=== PATIENT | male | born 1990 ===

== ENCOUNTER 2019-05-27 18:09 | Emergency (ER) | payer OTHER, MEDICAID, SELFPAY ==
[2019-05-27 18:10] VITALS: BP 135/80; PULSE 114; RESP 20; TEMP 36.7; O2SAT 96
--- NOTE | 2019-05-27 18:19 | DI.RAD.S_ITS ---
PROCEDURE: XR CHEST 2V INDICATIONS: sob, asthma TECHNIQUE: 2 views of the chest were acquired. COMPARISON: [facility], CR, XR CHEST 2VW, 03/31/2017, 16:56. FINDINGS: Surgical changes and devices: None. Lungs and pleura: There is a questionable pulmonary nodule at the right lung base. The lungs are otherwise clear. No pleural effusion or pneumothorax. Mediastinum: Mediastinal contours are normal. Heart size is normal. Bones and chest wall: No suspicious bony abnormalities. Soft tissues appear unremarkable. IMPRESSION: Questionable right basilar pulmonary nodule. Early infection cannot be excluded. Short interval followup is recommended with resolution of the patient's symptoms to ensure there is no underlying neoplasm. Dictated by: Aparna Gallego M.D. on 05/27/2019 at 18:47 Approved by: Aparna Gallego M.D. on 05/27/2019 at 18:49
[2019-05-27] MEDS: ALBUTEROL/IPRATROPIUM 3 ML AMPUL INH (18:35)
[2019-05-27] MEDS: predniSONE 20 MG TABLET 60 MG PO (18:42)
[2019-05-27 18:44] VITALS: RESP 16; O2SAT 96
--- NOTE | 2019-05-27 19:18 | ED_ITS ---
HPI - Asthma <TULIO Moise - Last Filed: 05/27/19 19:57> General Chief Complaint: Asthma Stated Complaint: SOB Time Seen by Provider: 05/27/19 18:11 Source: patient Mode of arrival: Ambulatory Limitations: no limitations History of Present Illness HPI Narrative: The patient is a 29-year-old male history of asthma who is a current smoker who presents with a chief complaint of continued shortness of breath. He went to to different emergency department yesterday. He states he has had a long history of asthma, got a refill of his albuterol yesterday, but has continued shortness of breath. Denies any fevers nausea vomiting or diarrhea. He complains of an occasional cough. He does not have primary care provider. He is complaining of wheezing. Related Data Previous Rx's Medication Instructions Recorded doxycycline hyclate 100 mg PO BID #20 cap 05/27/19 prednisone 50 mg PO DAILY #5 tab 05/27/19 Allergies Allergy/AdvReac Type Severity Reaction Status Date / Time No Known Allergies Allergy Uncoded 11/14/17 12:44 Review of Systems <TULIO Moise - Last Filed: 05/27/19 19:57> Review of Systems Narrative: GENERAL: Denies chills, fatigue, malaise, fever, sweats. HEENT: Denies sinus pain, ear pain, sore throat, difficulty swallowing, dizziness. RESPIRATORY: See HPI CARDIOVASCULAR: Denies chest pain, palpitations, orthopnea, edema, GASTROINTESTINAL: Denies nausea, vomiting, abdominal pain, diarrhea, constipation, melena. : Denies dysuria, frequency, incontinence, hematuria, urinary retention. MUSCULOSKELETAL: denies weakness, joint pain, or bony pain SKIN: Denies rash, skin lesions, or other NEUROLOGIC: Denies weakness, headache, numbness, change in speech, confusion, seizures, incoordination. PSYCHIATRIC: No concerning psychosocial issues. 12 point review of systems is negative except for those stated above Patient History <TULIO Moise - Last Filed: 05/27/19 19:57> Social History Smoking Status: Current every day smoker alcohol intake frequency: a few times a week Alcohol type: beer Substance Use Type: does not use Exam <TULIO Moise - Last Filed: 05/27/19 19:57> Narrative Exam Narrative: GENERAL: This is a well-nourished, well-developed patient, in no acute distress HEAD: Atraumatic. Normocephalic. No temporal or scalp tenderness. EYES: Pupils equal round and reactive. Extraocular motions intact. No scleral icterus. No injection or drainage. ENT: Nose without bleeding, purulent drainage or septal hematoma. Throat without erythema, tonsillar hypertrophy or exudate. Uvula midline. Airway patent. NECK: Trachea midline. No JVD or lymphadenopathy. Supple, nontender, no meningeal signs. CARDIOVASCULAR: Regular rate and rhythm without murmurs, gallops, or rubs. RESPIRATORY: Expiratory wheezes bilaterally auscultation. Breath sounds equal bilaterally. No rales, or rhonchi. GASTROINTESTINAL: Abdomen soft, non-tender, nondistended. No hepato- splenomegaly, or palpable masses. No guarding. EXTREMITIES: No clubbing, cyanosis, or edema. No joint tenderness, effusion, or edema noted. BACK: Nontender without deformity or crepitance. No flank tenderness. NEURO: AOx3. SKIN: No rash or erythema. Initial Vital Signs Initial Vital Signs: Vital Signs Temperature 98.1 F 05/27/19 18:10 Pulse Rate 114 H 05/27/19 18:10 Respiratory Rate 20 05/27/19 18:10 Blood Pressure 135/80 05/27/19 18:10 Pulse Oximetry 96 05/27/19 18:10 <Lisbeth Amaro DO - Last Filed: 05/27/19 20:18> Initial Vital Signs Initial Vital Signs: Vital Signs Temperature 98.1 F 05/27/19 18:10 Pulse Rate 114 H 05/27/19 18:10 Respiratory Rate 20 05/27/19 18:10 Blood Pressure 135/80 05/27/19 18:10 Pulse Oximetry 96 05/27/19 18:10 Course <TULIO Moise - Last Filed: 05/27/19 19:57> Orders Ordered: ED Orders 05/27/19 18:19 XR chest 2V Stat RT Consult Eval and Treat NOW Discontinued Medications Albuterol/Ipratropium (Duoneb) 3 ml INH NOW ONE Stop: 05/27/19 18:30 Last Admin: 05/27/19 18:35 Dose: 3 ml Documented by: ANISH Prednisone (Deltasone) 60 mg PO NOW ONE Stop: 05/27/19 18:32 Last Admin: 05/27/19 18:42 Dose: 60 mg Documented by: LEMUEL Vital Signs Vital signs: Vital Signs - 8 hr 05/27/19 18:10 05/27/19 18:44 05/27/19 19:23 Temperature 98.1 F Pulse Rate 114 H 79 Respiratory Rate 20 16 18 Blood Pressure 135/80 Blood Pressure [Right Arm] 148/86 H Pulse Oximetry 96 96 98 <Lisbeth Amaro DO - Last Filed: 05/27/19 20:18> Orders Ordered: ED Orders 05/27/19 18:19 XR chest 2V Stat RT Consult Eval and Treat NOW Discontinued Medications Albuterol/Ipratropium (Duoneb) 3 ml INH NOW ONE Stop: 05/27/19 18:30 Last Admin: 05/27/19 18:35 Dose: 3 ml Documented by: ANISH Prednisone (Deltasone) 60 mg PO NOW ONE Stop: 05/27/19 18:32 Last Admin: 05/27/19 18:42 Dose: 60 mg Documented by: LEMUEL Vital Signs Vital signs: Vital Signs - 8 hr 05/27/19 18:10 05/27/19 18:44 05/27/19 19:23 Temperature 98.1 F Pulse Rate 114 H 79 Respiratory Rate 20 16 18 Blood Pressure 135/80 Blood Pressure [Right Arm] 148/86 H Pulse Oximetry 96 96 98 MDM - Asthma <TULIO Moise - Last Filed: 05/27/19 19:57> Imaging Data Chest x-ray: Radiologist's impression: [address] [address] XRay Report Signed Patient: Flex Álvarez [facility]#: [id number] : 1990Acct:[id number] Age/Sex: 29 / MDate of Service: 05/27/19 Loc: ED Accession Number: [id number] Procedure: XR chest 2V Ordering Provider: Lisbeth Gaxiola PROCEDURE: XR CHEST 2V INDICATIONS: sob, asthma TECHNIQUE: 2 views of the chest were acquired. COMPARISON: [facility], CR, XR CHEST 2VW, 03/31/2017, 16:56. FINDINGS: Surgical changes and devices: None. Lungs and pleura: There is a questionable pulmonary nodule at the right lung base. The lungs are otherwise clear. No pleural effusion or pneumothorax. Mediastinum: Mediastinal contours are normal. Heart size is normal. Bones and chest wall: No suspicious bony abnormalities. Soft tissues appear unremarkable. IMPRESSION: Questionable right basilar pulmonary nodule. Early infection cannot be excluded. Short interval followup is recommended with resolution of the patient's symptoms to ensure there is no underlying neoplasm. Dictated by: Aparna Gallego M.D. on 05/27/2019 at 18:47 Approved by: Aparna Gallego M.D. on 05/27/2019 at 18:49 MDM Narrative Medical decision making narrative: The patient is a 29-year-old male who presents with a chief complaint of continued shortness of breath. He improved with a DuoNeb in the emergency department. Chest x-ray illustrate early infection verses pulmonary nodule. I discussed the else at length the patient, discussed that he needs to follow up with primary care provider gave him contact information to the [facility] health natural resources technician. I did discuss the importance of re-evaluation of this infection versus pulmonary nodule. I also placed him on a steroid burst. Discussed coming back to the emergency department for any acute concerns such as severe shortness of breath. Patient has no questions or concerns upon discharge and states understanding of return precautions as well as follow-up care. Discharge Plan Departure Patient Disposition: Home Clinical Impression: Acute asthma exacerbation Qualifiers: Asthma severity: unspecified severity Asthma persistence: unspecified Qualified Code(s): J45.901 - Unspecified asthma with (acute) exacerbation Pneumonia Qualifiers: Pneumonia type: due to unspecified organism Laterality: right Lung location: lower lobe of lung Qualified Code(s): J18.1 - Lobar pneumonia, unspecified organism Discharge Date/Time: 05/27/19 19:35 Instructions: DI for Asthma -- Adult, DI for Pneumonia -- Adult Activity Restrictions/Additional Instructions: I have given you your prescriptions for prednisone as well as an antibiotic. Please take the prednisone daily for the next 5 days; start this tomorrow because we gave you a dose in the emergency department. Please follow up with primary care provider, especially given the concern of a pulmonary nodule or mass versus pneumonia. Please come back to the emergency department for any acute concerns. Prescriptions: New doxycycline hyclate 100 mg capsule 100 mg PO BID Qty: 20 RF: 0 prednisone 50 mg tablet 50 mg PO DAILY Qty: 5 RF: 0 Referrals: [facility] [Outside]
[2019-05-27 19:23] VITALS: BP 148/86; PULSE 79; RESP 18; O2SAT 98
== END 2019-05-27 19:35 | disposition home or self-care (01) ==
PROVIDERS: Emergency Provider Nurse Practitioner Family
DX: J45.901 Unspecified asthma with (acute) exacerbation (principal); J18.1 Lobar pneumonia, unspecified organism
CPT/HCPCS: 71046; 94150; 94640; 99282; 99283

== ENCOUNTER 2019-06-19 05:49 | Emergency (ER) | payer OTHER, MEDICAID, SELFPAY ==
[2019-06-19 05:55] VITALS: BP 134/78; PULSE 108; RESP 20; TEMP 36.3; O2SAT 107
[2019-06-19 06:01] VITALS: PULSE 99; RESP 20; O2SAT 98
[2019-06-19] MEDS: ALBUTEROL/IPRATROPIUM 3 ML AMPUL INH (06:01)
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
[2019-06-19] MEDS: ALBUTEROL HFA PREPACK 1 BOX MISC (06:39)
[2019-06-19 06:42] VITALS: BP 134/76; PULSE 88; RESP 15; O2SAT 97
== END 2019-06-19 06:42 | disposition home or self-care (01) ==
PROVIDERS: Emergency Provider Emergency Medicine
DX: J45.21 Mild intermittent asthma with (acute) exacerbation (principal)
CPT/HCPCS: 94640; 99282; 99283

== ENCOUNTER 2019-06-21 16:22 | Emergency (ER) | payer OTHER, MEDICAID, SELFPAY ==
[2019-06-21] MEDS: ALBUTEROL/IPRATROPIUM 3 ML AMPUL INH (16:35)
[2019-06-21] MEDS: ALBUTEROL 2.5 MG/3 ML NEB (ADULT) INH (16:35)
[2019-06-21 16:36] VITALS: RESP 16; O2SAT 96
[2019-06-21 16:38] VITALS: BP 147/93; PULSE 115; RESP 26; TEMP 36.9; O2SAT 96; BMI 28.1
[2019-06-21] MEDS: predniSONE 20 MG TABLET 40 MG PO (16:58)
[2019-06-21] MEDS: ALBUTEROL HFA PREPACK 1 BOX MISC (17:03)
[2019-06-21 17:08] LABS: Strep Grp A by PCR Rapid Negative
--- NOTE | 2019-06-21 17:19 | ED_ITS ---
HPI - URI/Sore Throat General Chief Complaint: Upper Respiratory Symptoms Stated Complaint: trouble breathing Time Seen by Provider: 06/21/19 16:25 Source: patient Mode of arrival: Ambulatory Limitations: no limitations History of Present Illness HPI Narrative: 29M smoker with asthma presents with increased wheezing and albuterol isn't working since yesterday. Deep breath initiates cough. No fever or sputum production. He admits that his albuterol inhaler has zero metered doses left and probably has for a few days. MD Complaint: cough Onset (ago): day(s) Duration: constant Severity: mild Relieving factors: nothing Exacerbating factors: nothing Able to tolerate fluids by mouth: Yes Associated symptoms: cough Related Data Previous Rx's Medication Instructions Recorded doxycycline hyclate 100 mg PO BID #20 cap 05/27/19 prednisone 50 mg PO DAILY #5 tab 05/27/19 prednisone 20 mg PO DAILY #5 tab 06/21/19 Allergies Allergy/AdvReac Type Severity Reaction Status Date / Time No Known Drug Allergies Allergy Verified 06/21/19 16:38 Review of Systems Constitutional Constitutional: Denies chills, Denies fatigue, Denies fever(s), Denies frequent falls, Denies lethargy and Denies weakness Eyes Eyes: Denies change in vision, Denies eye discharge, Denies irritation and Denies loss of vision ENT Ears, Nose, Mouth, and Throat: Denies change in voice, Denies dizziness, Denies neck pain, Denies sore throat and Denies throat swelling Cardiovascular Cardiovascular: Denies chest pain, Denies irregular heart rhythm, Denies lightheadedness, Denies palpitations, Denies dyspnea, Denies dyspnea on exertion and Denies orthopnea Respiratory Respiratory: Denies cough, Denies dyspnea, Denies dyspnea on exertion and Reports wheezing Gastrointestinal Gastrointestinal: Denies abdominal pain, Denies change in bowel habits, Denies diarrhea, Denies nausea and Denies vomiting Genitourinary Genitourinary: Denies hematuria, Denies flank pain, Denies urinary incontinence and Denies urinary urgency Musculoskeletal Musculoskeletal: Denies back pain, Denies muscle weakness, Denies neck pain, Denies numbness and Denies tingling Integumentary/Breasts Skin/Breast: Denies pruritus, Denies erythema, Denies rash and Denies wounds Neurologic Neurologic: Denies behavioral changes, Denies confusion, Denies dizziness, Denies frequent falls, Denies loss of vision, Denies numbness, Denies tingling and Denies weakness Psychiatric Psychiatric: Denies anxiety, Denies behavioral changes, Denies confusion, Denies depression, Denies homicidal ideation and Denies suicidal ideation Endocrine Endocrine: Denies fatigue, Denies flushing and Denies palpitations Hematologic/Lymphatic Hematologic/Lymphatic: Denies easy bruising Allergic/Immunologic Allergic/Immunologic: Denies urticaria, Denies throat swelling and Reports wheezing Patient History Medical History No chronic diseases present (Acute) Surgical History No significant past surgical history (Acute) Social History Smoking Status: Current every day smoker tobacco type: cigarettes alcohol intake frequency: a few times a week Alcohol type: beer Substance Use Type: does not use Exam Narrative Exam Narrative: GEN: AOx3 and in mild distress EYES: Pupils are equal, round, and reactive to light and accommodation. Extraoccular muscles are intact bilaterally. There is no subconjunctival hemorrhage or exudate. CHEST: No obvious respiratory distress, mild expiratory or inspiratory wheeze. Heart rate is regular rhythm, there are no murmurs, clicks, rubs, or gallops. There is no chest wall tenderness. ABD: Abdomen is soft and nontender. There is no guarding or rebound. Bowel sounds are normal in all 4 quadrants. There is no mass or organomegaly. EXT: Full painless ROM of all extremities with no loss of sensation or strength. SKIN: Warm, pink, and dry. No erythema or rash Initial Vital Signs Initial Vital Signs: Vital Signs Respiratory Rate 16 06/21/19 16:36 Pulse Oximetry 96 06/21/19 16:36 Course Course Course Narrative: Patient has complete resolution of symptoms after above-stated therapies. He has had extensive bedside teaching by respiratory therapy including flutter valve, the use of chamber among others. Orders Ordered: ED Orders 06/21/19 16:50 Strep Grp A by PCR Rapid Stat Discontinued Medications Albuterol (Ventolin) 2.5 mg INH NOW ONE Stop: 06/21/19 16:35 Last Admin: 06/21/19 16:35 Dose: 2.5 mg Documented by: ROSALINO Albuterol (Ventolin Hfa Prepack) 1 box MISC SEEINSTR ONE Stop: 06/21/19 17:03 Last Admin: 06/21/19 17:03 Dose: 1 box Documented by: ROSALINO Albuterol/Ipratropium (Duoneb) 3 ml INH NOW ONE Stop: 06/21/19 16:35 Last Admin: 06/21/19 16:35 Dose: 3 ml Documented by: ROSALINO Prednisone (Deltasone) 40 mg PO NOW ONE Stop: 06/21/19 16:47 Last Admin: 06/21/19 16:58 Dose: 40 mg Documented by: NICOLE Vital Signs Vital signs: Vital Signs - 8 hr 06/21/19 16:36 06/21/19 16:38 06/21/19 17:25 Temperature 98.5 F Pulse Rate 115 H 114 H Respiratory Rate 16 26 H 20 Blood Pressure 147/93 H Blood Pressure [Right Arm] 143/71 H Pulse Oximetry 96 96 95 MDM - URI/Sore Throat Lab Data Labs: Lab Results 06/21/19 Range/Units 16:50 Group A Strep (PCR) Negative Discharge Plan Departure Patient Disposition: Home Clinical Impression: Acute asthma exacerbation Qualifiers: Asthma severity: mild Asthma persistence: unspecified Qualified Code(s): J4 5.901 - Unspecified asthma with (acute) exacerbation Discharge Date/Time: 06/21/19 17:30 Instructions: Asthma -- Adult Activity Restrictions/Additional Instructions: *You have been diagnosed with [acute asthma exacerbation] *What to do: *Take medications as directed *Follow up with your primary care provider in 2-3 days, call for an appointment. Let them know you were seen in the Emergency Department and that we ask that you be seen in follow up *Return to ER if you should have any new, worsening or concerning symptoms Prescriptions: New prednisone 20 mg tablet 20 mg PO DAILY Qty: 5 RF: 0 No Action doxycycline hyclate 100 mg capsule 100 mg PO BID Qty: 20 RF: 0 prednisone 50 mg tablet 50 mg PO DAILY Qty: 5 RF: 0 Referrals: [facility] [Outside]
[2019-06-21 17:25] VITALS: BP 143/71; PULSE 114; RESP 20; O2SAT 95
== END 2019-06-21 17:30 | disposition home or self-care (01) ==
PROVIDERS: Emergency Provider Emergency Medicine
DX: J45.901 Unspecified asthma with (acute) exacerbation (principal)
CPT/HCPCS: 87651; 94150; 94640; 99282; 99284; J7613

== ENCOUNTER 2025-01-23 19:40 | Emergency (ER) | payer OTHER, MEDICAID, SELFPAY ==
[2025-01-23 19:48] VITALS: BP 148/76; PULSE 107; RESP 18; TEMP 37; O2SAT 94; BMI 29.3
[2025-01-23 20:05] VITALS: PULSE 103; RESP 26; O2SAT 99
[2025-01-23] MEDS: ALBUTEROL/IPRATROPIUM 3 ML AMPUL INH (20:05)
[2025-01-23 20:06] VITALS: BP 136/88; PULSE 102; RESP 24; O2SAT 99
[2025-01-23 20:09] VITALS: PULSE 102; RESP 29; O2SAT 98
[2025-01-23 20:30] VITALS: BP 149/86; PULSE 102; RESP 18; O2SAT 100
--- NOTE | 2025-01-23 20:34 | ED.SOB ---
HPI - SOB/Dyspnea General Chief Complaint: Upper Respiratory Symptoms Stated Complaint: SOB, feeling of unbalanced but not dizzy Time Seen by Provider: 01/23/25 20:33 Source: patient Mode of arrival: Ambulatory Limitations: no limitations History of Present Illness HPI Narrative: Patient is a 34-year-old male coming into the ED from home for evaluation shortness of breath that started today while he was cutting grass. Does have a history of asthma. He denies any other symptoms at this time, states that he does have an albuterol inhaler but feels like it does not normally help whenever this happens to him. On physical exam patient is speaking full sentences protecting airway, no voice changes no stridor no trismus. Related Data Previous Rx's ?Medication ?Instructions ?Recorded doxycycline hyclate 100 mg capsule 100 mg PO BID #20 caps 05/27/19 prednisone 50 mg tablet 50 mg PO DAILY #5 tabs 05/27/19 prednisone 20 mg tablet 20 mg PO DAILY #5 tabs 06/21/19 albuterol sulfate 90 mcg/actuation 2 inh inhalation Q6H PRN shortness 01/23/25 breath activated powder inhaler of breath or wheezing #1 ea prednisone 20 mg tablet 20 mg PO BID 5 days #10 tabs 01/23/25 Allergies Allergy/AdvReac Type Severity Reaction Status Date / Time No Known Drug Allergies Allergy Verified 01/23/25 19:49 Review of Systems Review of Systems Narrative: General: Denies fever, chills, weight loss HEENT: Denies headache, eye drainage, eye irritation, head trauma, sore throat, voice change Cardiovascular: Denies any chest pain, palpitations, tachycardia Respiratory: Positive shortness of breath, cough, wheeze GI/: Denies any abdominal pain, nausea, vomiting, diarrhea, bright red blood per rectum, melanotic stools, urinary frequency, urinary retention, dysuria, hematuria MSK: Denies any joint pain, muscle pains, swelling Skin: Denies any rashes, lesions, discoloration Neuro: Denies any headache, lightheadedness, dizziness, fainting, weakness Psych: Denies SI/HI Patient History Medical History (Updated 01/23/25 @ 20:41 by Azael Crooks DO) No chronic diseases present Surgical History No significant past surgical history Social History Smoking Status: Former smoker Smoking Status: Former smoker tobacco type: cigarettes alcohol intake frequency: a few times a week Alcohol type: beer Exam Narrative Exam Narrative: General: Cooperative, well-developed, not in acute distress HEENT: Normocephalic, atraumatic, PERRLA, normal sclera, eyelids normal Neck: Active full range of motion, atraumatic Chest: Normal to inspection, negative crepitus, no overlying erythema ecchymosis Respiratory: Positive cough, mild expiratory wheezes in all lung oneil but patient is speaking full sentences protecting airway no voice changes no stridor no trismus Cardiology: Regular rate rhythm negative gallop, murmur, rubs GI/: No tenderness to palpation, soft, non rigid, normal to inspection, exam deferred MSK: Full active range of motion in all 4 extremities, atraumatic, no tenderness to palpation of any bony prominences Skin: No rashes or lesions noted Neuro: Alert awake oriented x3, moves all 4 extremities spontaneously, cranial nerves intact, able to answer all questions appropriately follows commands appropriately Psych: Cooperative, negative suicidal or homicidal ideations Initial Vital Signs Initial Vital Signs: Vital Signs Temperature 98.6 F 01/23/25 19:48 Pulse Rate 107 H 01/23/25 19:48 Respiratory Rate 18 01/23/25 19:48 Blood Pressure 148/76 H 01/23/25 19:48 Pulse Oximetry 94 01/23/25 19:48 Oxygen Delivery Method Room Air 01/23/25 19:48 Course Orders Ordered: ED Orders 01/23/25 19:55 Covid-19 + FLU A/B + RSV - PCR Stat Discontinued Medications Albuterol (Albuterol 2.5 Mg/3 Ml Neb (Adult)) 2.5 mg INH NOW ONE Stop: 01/23/25 20:39 Last Admin: 01/23/25 21:01 Dose: 2.5 mg Documented By: MR Albuterol (Albuterol Hfa Prepack) 1 box MISC DIRECTED ONE Stop: 01/23/25 20:43 Last Admin: 01/23/25 20:49 Dose: 1 box Documented By: C Albuterol/Ipratropium (Albuterol/Ipratropium 3 Ml Ampul) 3 ml INH NOW ONE Stop: 01/23/25 20:02 Last Admin: 01/23/25 20:05 Dose: 3 ml Documented By: Magnesium Sulfate (Magnesium Sulfate) 2 gm in 50 mls @ 150 mls/hr IV NOW ONE Stop: 01/23/25 20:58 Last Admin: 01/23/25 20:48 Dose: 150 mls/hr Documented By: MARIA DEL ROSARIO Co-signed By: VALERIE Methylprednisolone (Methylprednisolone 125 Mg/2 Ml Vial) 125 mg IV NOW ONE Stop: 01/23/25 20:39 Last Admin: 01/23/25 20:48 Dose: 125 mg Documented By: MARIA DEL ROSARIO Vital Signs Vital signs: Vital Signs - 8 hr 01/23/25 19:48 01/23/25 20:05 01/23/25 20:06 Temperature 98.6 F Pulse Rate 107 H 103 H 102 H Respiratory Rate 18 26 H 24 Blood Pressure 148/76 H Pulse Oximetry 94 99 99 Oxygen Delivery Method Room Air Room Air 01/23/25 20:06 01/23/25 20:09 Temperature Pulse Rate 102 H Respiratory Rate 29 H Blood Pressure 136/88 Pulse Oximetry 98 Oxygen Delivery Method MDM - SOB/Dyspnea Differential Diagnosis Differential diagnosis: Likely acute exacerbation of chronic obstructive airways disease and asthma with exacerbation Lab Data Labs: Lab Results 01/23/25 Range/Units 19:55 SARS-CoV-2 (PCR) Negative (Negative) Influenza A (RT-PCR) Flu a negative (NEGATIVE) Influenza B (RT-PCR) Flu b negative (NEGATIVE) RSV (PCR) Negative (Negative) MDM Narrative Medical decision making narrative: Patient is a 34-year-old male past medical history of asthma presenting for asthma exacerbation, he states that earlier today he was cutting grass and started having shortness of breath. Time of evaluation patient with expiratory wheezes but protecting airway, no voice changes no stridor no trismus. Patient significant improvement after administration of DuoNeb, albuterol, Solu-Medrol and magnesium. Patient will be discharged home with steroids as well as albuterol inhaler, he was given strict return precautions and verbalized understanding of this and agrees to being discharged home with outpatient follow up Discharge Plan Departure Patient Disposition: Home Clinical Impression: Acute asthma exacerbation Qualifiers: Asthma severity: mild Asthma persistence: unspecified Qualified Code(s): J45.901 - Unspecified asthma with (acute) exacerbation Instructions: Asthma -- Adult Activity Restrictions/Additional Instructions: Please follow up with the primary care doctor Please read the discharge instructions sheet carefully and bring all papers to all doctor follow-up visits, as it may contain information that your doctor may want to see. Disease processes change and evolve, if your symptoms worsen or if you develop any new symptoms that are concerning to you please return for evaluation. Your evaluation today does not show any evidence of any life-threatening/serious illnesses requiring admission to the hospital or surgery. Please follow-up with your doctor for re-evaluation in approximately 1 day. Seek immediate medical attention for any worrisome symptoms. *If you do not have a primary care provider please contact the [facility] Resource line at [phone]. They will ask some questions about your medical history and help get you set up with a doctor in the community. Prescriptions: New prednisone 20 mg tablet 20 mg PO BID 5 Days Qty: 10 0RF albuterol sulfate 90 mcg/actuation aerosol powdr breath activated 2 inh inhalation Q6H PRN (Reason: shortness of breath or wheezing) Qty: 1 0RF No Action doxycycline hyclate 100 mg capsule 100 mg PO BID Qty: 20 0RF prednisone 50 mg tablet 50 mg PO DAILY Qty: 5 0RF prednisone 20 mg tablet 20 mg PO DAILY Qty: 5 0RF Rx Instructions: administer with food or milk Stand Alone Forms: Patient Portal/API
[2025-01-23 20:48] LABS: Influenza A - CEPHEID Flu A NEGATIVE (NEGATIVE); Influenza B - CEPHEID Flu B NEGATIVE (NEGATIVE); Respiratory Syncytial Virus Negative (Negative)
[2025-01-23] MEDS: MAGNESIUM SULFATE 2 GM/50 ML PIGGYBACK IV (20:48)
[2025-01-23] MEDS: methylPREDNISolone 125 MG/2 ML VIAL IV (20:48)
[2025-01-23] MEDS: ALBUTEROL HFA PREPACK 1 BOX MISC (20:49)
[2025-01-23 21:00] VITALS: BP 144/83; PULSE 96; RESP 21; O2SAT 96
[2025-01-23 21:00] LABS: COVID-19 CEPHEID 4-PLEX PCR Negative (Negative)
[2025-01-23] MEDS: ALBUTEROL 2.5 MG/3 ML NEB (ADULT) INH (21:01)
== END 2025-01-23 21:24 | disposition home or self-care (01) ==
PROVIDERS: Emergency Provider Student in an Organized Health Care Education/Training Program
DX: J45.901 Unspecified asthma with (acute) exacerbation (principal); Z87.891 Personal history of nicotine dependence
CPT/HCPCS: 0241U; 36415; 94640; 96365; 96375; 99284; J2919; J3475; J7613